=== PATIENT | female | born 1945 | race Caucasian/White ===

== ENCOUNTER 2017-04-22 09:47 | Observation (INO) | payer OTHER ==
[~2017-04-22] VITALS: Ht 152.4 cm; Wt 76.7 kg
[~2017-04-22 09:47] MED LIST: HYDROCODONE-AP1 EA12 PO; PRINZIDE 10-121 EACH PO
[2017-04-22 11:05] LABS: BASOPHIL COUNT 0.1 K/uL (0-0.1); EOSINOPHIL (%) 0.6 % (0-5); EOSINOPHIL COUNT 0.1 K/uL (0-0.3); HEMATOCRIT 35.1 % (36.0-46.0); IMMATURE GRANULOCYTE (%) 0.3 % (0.0-0.7); INSTRUMENT ABS NEUTROPHIL CT 6.6 K/uL; LYMPHOCYTE COUNT 2.1 K/uL (1.0-2.8); MCH 28.9 PG (29.0-34.0); MCHC 33.6 G/DL (30.0-36.0); MCV 85.8 FL (83-99); MEAN PLAT.VOLUME 9.7 uM^3 (9.5-12.4); MONOCYTE (%) 8.3 % (3-12); MONOCYTE COUNT 0.8 K/uL (0-0.8); NEUTROPHIL (%) 68.3 % (45-76); NEUTROPHIL COUNT 6.6 K/uL (1.8-6.4); PLATELET COUNT 320 K/uL (156-360); RBC DIS.WIDTH-CV 13.7 % (11.8-14.6); RBC DIS.WIDTH-SD 43.3 % (39-53); RED BLOOD COUNT 4.09 M/uL (3.80-5.20); WHITE BLOOD COUNT 9.7 K/uL (4.1-10.2)
[2017-04-22 11:14] LABS: CHLORIDE 93 mEq/L (99-109); SODIUM 127 mEq/L (136-147)
[2017-04-22 11:15] LABS: GLUCOSE 100 mg/dL (70-99)
[2017-04-22 11:17] LABS: ANION GAP 10 MEQ/L (2-14)
[2017-04-22 11:19] LABS: GFR ESTIMATE (CALCULATED) > 59 mL/min/
[2017-04-22 11:20] LABS: UREA NITROGEN (BUN) 6 mg/dL (9-23)
[2017-04-22 11:22] LABS: CREATINE KINASE 82 IU/L (1-294); TOTAL CK 82 IU/L (1-294)
[2017-04-22 11:28] LABS: CK-MB 2.1 ng/mL (0.0-4.9)
[2017-04-22] MEDS ORDERED: TRAMADOL HCL50 MG PO (13:30)
[2017-04-22] MEDS ORDERED: SERAX10 MG PO (13:31)
[2017-04-22] MEDS ORDERED: VENLAFAXINE HCL75 M3 PO (13:31)
[2017-04-22] MEDS ORDERED: TOPROL XL50 MG PO (13:31)
[2017-04-22] MEDS ORDERED: VALSARTAN320 MG PO (13:31)
[2017-04-22] MEDS ORDERED: NORVASC10 MG PO (13:32)
[2017-04-22] MEDS ORDERED: ELAVIL10 MG PO (13:32)
[2017-04-22] MEDS ORDERED: VITAMIN D31000 UNI2 PO (13:34)
[2017-04-22] MEDS ORDERED: OMEPRAZOLE40 M1 PO (13:34)
[2017-04-22 14:01] VITALS: BP 150/75
[2017-04-22 18:34] LABS: ANION GAP 10 MEQ/L (2-14); CHLORIDE 97 MEQ/L (99-109); GFR ESTIMATE (CALCULATED) > 59 mL/min/; GLUCOSE 89 mg/dL (70-99); POTASSIUM 3.7 MEQ/L (3.7-5.4); SAMPLE HEMOLYSIS CHECK 0; SAMPLE ICTERIC CHECK 0; SAMPLE LIPEMIA CHECK 0; SODIUM 131 MEQ/L (136-147); UREA NITROGEN (BUN) 5 mg/dL (9-23)
[2017-04-22 20:00] VITALS: BP 150/62
[2017-04-23] VITALS: BP 154/44
[2017-04-23 04:00] VITALS: BP 144/78
[2017-04-23 06:14] LABS: ANION GAP 7 MEQ/L (2-14); CHLORIDE 100 MEQ/L (99-109); GFR ESTIMATE (CALCULATED) > 59 mL/min/; GLUCOSE 93 mg/dL (70-99); POTASSIUM 4.1 MEQ/L (3.7-5.4); SAMPLE HEMOLYSIS CHECK 0; SAMPLE ICTERIC CHECK 0; SAMPLE LIPEMIA CHECK 0; SODIUM 133 MEQ/L (136-147); UREA NITROGEN (BUN) 4 mg/dL (9-23)
[2017-04-23 07:09] VITALS: BP 152/72
== END 2017-04-23 11:14 | disposition home or self-care (01) ==
LOC: EME 09:47 → EDOF 13:16 → 5WEST 13:16
PROVIDERS: Emergency Medicine; Hospitalist
DX: E87.1 Hypo-osmolality and hyponatremia (principal); M79.604 Pain in right leg; J45.909 Unspecified asthma, uncomplicated; I10 Essential (primary) hypertension; K21.9 Gastro-esophageal reflux disease without esophagitis; M79.7 Fibromyalgia; R53.1 Weakness; F17.210 Nicotine dependence, cigarettes, uncomplicated; M17.9 Osteoarthritis of knee, unspecified
CPT/HCPCS: 80048; 80048 91; 82550; 82553; 83935; 84300; 85025; 93971; 99281; 99284; G0378; J1650; J7030

== ENCOUNTER 2017-05-26 14:51 | Inpatient (IN) | payer OTHER ==
[~2017-05-26] VITALS: Ht 160 cm; Wt 84.9 kg
[~2017-05-26 14:51] MED LIST changes: +NORVASC10 MG PO; +OMEPRAZOLE40 M1 PO; +SERAX10 MG PO; +TOPROL XL50 MG PO; +TRAMADOL HCL50 MG PO; +VALSARTAN320 MG PO; +VENLAFAXINE HCL75 M3 PO; +VITAMIN D31000 UNI2 PO
[2017-05-26] MEDS ORDERED: TYLENOL WITH C1 EACH PO (15:20)
[2017-05-26 15:57] LABS: HEMATOCRIT 35.1 % (36.0-46.0); MCH 28.6 PG (29.0-34.0); MCHC 33.6 G/DL (30.0-36.0); MCV 85.2 FL (83-99); MEAN PLAT.VOLUME 10.1 uM^3 (9.5-12.4); PLATELET COUNT 276 K/uL (156-360); RBC DIS.WIDTH-CV 14.3 % (11.8-14.6); RBC DIS.WIDTH-SD 44.6 % (39-53); RED BLOOD COUNT 4.12 M/uL (3.80-5.20); WHITE BLOOD COUNT 10.4 K/uL (4.1-10.2)
[2017-05-26 16:04] LABS: INTER. NORMALIZED RATIO 1.1; PROTHROMBIN TIME 11.8 SEC (10.2-12.9)
[2017-05-26 16:06] LABS: CHLORIDE 99 mEq/L (99-109); POTASSIUM 3.8 mEq/L (3.7-5.4); SODIUM 132 mEq/L (136-147)
[2017-05-26 16:08] LABS: GLUCOSE 120 mg/dL (70-99)
[2017-05-26 16:10] LABS: ANION GAP 10 MEQ/L (2-14)
[2017-05-26 16:12] LABS: GFR ESTIMATE (CALCULATED) > 59 mL/min/
[2017-05-26 16:13] LABS: UREA NITROGEN (BUN) 6 mg/dL (9-23)
[2017-05-26] MEDS ORDERED: ELAVIL10 MG PO (18:59)
[2017-05-26] MEDS ORDERED: METOPROLOL SUCC50 MG PO (20:33)
[2017-05-26 21:18] VITALS: BP 144/67
[2017-05-26 22:59] VITALS: BP 140/65
[2017-05-27 03:58] VITALS: BP 135/84
[2017-05-27 06:50] LABS: MCH 29.8 PG (29.0-34.0); MCHC 34.3 G/DL (30.0-36.0); MCV 86.8 FL (83-99); MEAN PLAT.VOLUME 10.9 uM^3 (9.5-12.4); PLATELET COUNT 282 K/uL (156-360); RBC DIS.WIDTH-CV 14.5 % (11.8-14.6); RBC DIS.WIDTH-SD 46.3 % (39-53); RED BLOOD COUNT 4.03 M/uL (3.80-5.20); WHITE BLOOD COUNT 11.6 K/uL (4.1-10.2)
[2017-05-27 07:12] LABS: ANION GAP 12 MEQ/L (2-14); CHLORIDE 96 MEQ/L (99-109); GFR ESTIMATE (CALCULATED) > 59 mL/min/; GLUCOSE 104 mg/dL (70-99); POTASSIUM 4.3 MEQ/L (3.7-5.4); SAMPLE HEMOLYSIS CHECK 0; SAMPLE ICTERIC CHECK 0; SAMPLE LIPEMIA CHECK 0; SODIUM 133 MEQ/L (136-147); UREA NITROGEN (BUN) 7 mg/dL (9-23)
[2017-05-27 07:48] VITALS: BP 171/74
[2017-05-27 16:30] VITALS: BP 141/87
[2017-05-27 19:30] VITALS: BP 157/72
[2017-05-28 07:29] VITALS: BP 120/69
[2017-05-28 09:06] LABS: HEMATOCRIT 30.3 % (36.0-46.0); MCH 29.1 PG (29.0-34.0); MCHC 33.7 G/DL (30.0-36.0); MCV 86.6 FL (83-99); MEAN PLAT.VOLUME 10.8 uM^3 (9.5-12.4); PLATELET COUNT 223 K/uL (156-360); RBC DIS.WIDTH-CV 14.6 % (11.8-14.6); RBC DIS.WIDTH-SD 46.4 % (39-53); WHITE BLOOD COUNT 14.5 K/uL (4.1-10.2)
[2017-05-28 09:30] LABS: ANION GAP 7 MEQ/L (2-14); CHLORIDE 100 MEQ/L (99-109); GFR ESTIMATE (CALCULATED) > 59 mL/min/; GLUCOSE 110 mg/dL (70-99); POTASSIUM 4.1 MEQ/L (3.7-5.4); SAMPLE HEMOLYSIS CHECK 0; SAMPLE ICTERIC CHECK 0; SAMPLE LIPEMIA CHECK 0; SODIUM 131 MEQ/L (136-147); UREA NITROGEN (BUN) 9 mg/dL (9-23)
[2017-05-28 15:30] VITALS: BP 144/70
[2017-05-29 00:15] VITALS: BP 134/62
[2017-05-29 07:05] LABS: EOSINOPHIL (%) 0.4 % (0-5); EOSINOPHIL COUNT 0.1 K/uL (0-0.3); HEMATOCRIT 29.6 % (36.0-46.0); IMMATURE GRANULOCYTE (%) 0.7 % (0.0-0.7); IMMATURE GRANULOCYTE COUNT 0.1 K/uL; INSTRUMENT ABS NEUTROPHIL CT 10.1 K/uL; LYMPHOCYTE COUNT 1.8 K/uL (1.0-2.8); MCH 29.9 PG (29.0-34.0); MCHC 34.1 G/DL (30.0-36.0); MCV 87.6 FL (83-99); MEAN PLAT.VOLUME 11.4 uM^3 (9.5-12.4); MONOCYTE (%) 10.3 % (3-12); MONOCYTE COUNT 1.4 K/uL (0-0.8); NEUTROPHIL (%) 75.3 % (45-76); NEUTROPHIL COUNT 10.1 K/uL (1.8-6.4); PLATELET COUNT 206 K/uL (156-360); RBC DIS.WIDTH-CV 14.7 % (11.8-14.6); RBC DIS.WIDTH-SD 47.8 % (39-53); RED BLOOD COUNT 3.38 M/uL (3.80-5.20); WHITE BLOOD COUNT 13.4 K/uL (4.1-10.2)
[2017-05-29 07:29] LABS: ANION GAP 10 MEQ/L (2-14); CHLORIDE 98 MEQ/L (99-109); GFR ESTIMATE (CALCULATED) > 59 mL/min/; GLUCOSE 85 mg/dL (70-99); POTASSIUM 3.7 MEQ/L (3.7-5.4); SAMPLE HEMOLYSIS CHECK 0; SAMPLE ICTERIC CHECK 0; SAMPLE LIPEMIA CHECK 0; SODIUM 131 MEQ/L (136-147); UREA NITROGEN (BUN) 8 mg/dL (9-23)
[2017-05-29 08:00] VITALS: BP 114/59
[2017-05-29 11:17] VITALS: BP 129/60
[2017-05-29 15:45] VITALS: BP 116/60
[2017-05-29 19:48] VITALS: BP 147/67
[2017-05-29 23:13] VITALS: BP 136/69
[2017-05-30 03:54] VITALS: BP 142/67
[2017-05-30] MEDS ORDERED: DOCUSATE SODIU100 MG PO (07:50)
[2017-05-30] MEDS ORDERED: ENDOCET 5-3251 EACH PO (07:50)
[2017-05-30] MEDS ORDERED: XARELTO10 MG PO (07:50)
[2017-05-30 08:04] VITALS: BP 138/63
[2017-05-30 09:55] LABS: HEMATOCRIT 27.6 % (36.0-46.0); MCH 28.5 PG (29.0-34.0); MCV 86.5 FL (83-99); MEAN PLAT.VOLUME 10.6 uM^3 (9.5-12.4); PLATELET COUNT 225 K/uL (156-360); RBC DIS.WIDTH-CV 14.6 % (11.8-14.6); RED BLOOD COUNT 3.19 M/uL (3.80-5.20); WHITE BLOOD COUNT 9.8 K/uL (4.1-10.2)
[2017-05-30 10:23] LABS: ANION GAP 11 MEQ/L (2-14); CHLORIDE 100 MEQ/L (99-109); GFR ESTIMATE (CALCULATED) > 59 mL/min/; GLUCOSE 95 mg/dL (70-99); POTASSIUM 3.7 MEQ/L (3.7-5.4); SAMPLE HEMOLYSIS CHECK 0; SAMPLE ICTERIC CHECK 0; SAMPLE LIPEMIA CHECK 0; SODIUM 129 MEQ/L (136-147); UREA NITROGEN (BUN) 7 mg/dL (9-23)
== END 2017-05-30 11:14 | DRG 470 ==
LOC: EME 14:51 → 3EAST 19:08 → EDOF 19:08 → ENRESERV 19:12 → 3EAST 20:36
PROVIDERS: Emergency Medicine; Hospitalist; Physician Assistant
PROC: 0SRR01A Replacement of Right Hip Joint, Femoral Surface with Metal Synthetic Substitute, Uncemented, Open Approach (ICD-10-PCS; principal; 2017-05-27)
DX: S72.031A Displaced midcervical fracture of right femur, initial encounter for closed fracture (principal); W01.0XXA Fall on same level from slipping, tripping and stumbling without subsequent striking against object, initial encounter; E87.1 Hypo-osmolality and hyponatremia; I10 Essential (primary) hypertension; K21.9 Gastro-esophageal reflux disease without esophagitis; M79.7 Fibromyalgia; M17.11 Unilateral primary osteoarthritis, right knee; R29.6 Repeated falls; F41.9 Anxiety disorder, unspecified; F32.9 Major depressive disorder, single episode, unspecified; F17.210 Nicotine dependence, cigarettes, uncomplicated; Y92.007 Garden or yard of unspecified non-institutional (private) residence as the place of occurrence of the external cause; Y93.H2 Activity, gardening and landscaping; Z87.442 Personal history of urinary calculi; Z83.3 Family history of diabetes mellitus; Z88.1 Allergy status to other antibiotic agents; Z88.5 Allergy status to narcotic agent
CPT/HCPCS: 70450; 71010; 72125; 73502; 80048; 80069; 85014; 85018; 85025; 85027; 85610; 86850; 86900; 86901; 94799; 97530 GO; 97530 GP; 99281; 99285; J1170; J1644; J2250; J2270; J2405; J3010; J3370; J7030; S0028

== ENCOUNTER 2018-02-28 20:58 | Emergency (ER) | payer OTHER ==
[~2018-02-28] VITALS: Ht 152.4 cm; Wt 67.8 kg
[~2018-02-28 20:58] MED LIST changes: +DOCUSATE SODIU100 MG PO; +ELAVIL10 MG PO; +ENDOCET 5-3251 EACH PO; +METOPROLOL SUCC50 MG PO; +TYLENOL WITH C1 EACH PO; +XARELTO10 MG PO
[2018-02-28] MEDS ORDERED: ASPIRIN81 M2 PO (21:54)
[2018-02-28] MEDS ORDERED: FISH OIL 1,0001 EAC7 PO (21:54)
[2018-03-01 00:25] VITALS: BP 137/83
== END 2018-03-01 00:25 | disposition home or self-care (01) ==
LOC: EME → EDBD 20:58 → EME 03-01 00:25
DX: M71.22 Synovial cyst of popliteal space [Baker], left knee (principal); I10 Essential (primary) hypertension; K21.9 Gastro-esophageal reflux disease without esophagitis; J45.909 Unspecified asthma, uncomplicated; M79.7 Fibromyalgia; F41.9 Anxiety disorder, unspecified; F32.9 Major depressive disorder, single episode, unspecified; F17.200 Nicotine dependence, unspecified, uncomplicated; Z87.442 Personal history of urinary calculi; Z79.891 Long term (current) use of opiate analgesic; Z88.5 Allergy status to narcotic agent; Z88.1 Allergy status to other antibiotic agents
CPT/HCPCS: 73564; 93971; 99281; 99284

== ENCOUNTER 2018-05-05 22:04 | Inpatient (IN) | payer OTHER ==
[~2018-05-05] VITALS: Ht 152.4 cm; Wt 67.9 kg
[~2018-05-05 22:04] MED LIST changes: +ANTIVERT25 MG PO; +ASPIRIN81 M2 PO; +BENICAR20 MG PO; +FISH OIL 1,0001 EAC7 PO; +IRON325 M1 PO
[2018-05-06 12:11] VITALS: BP 184/74
[2018-05-06 18:16] VITALS: BP 132/65
[2018-05-06 20:02] VITALS: BP 140/64
[2018-05-07] VITALS: BP 133/62
[2018-05-07 04:08] VITALS: BP 131/63
[2018-05-07 06:10] LABS: HEMATOCRIT 31.3 % (36.0-46.0); HEMOGLOBIN 10.5 G/DL (11.9-15.5); MCV 85.3 FL (83-99)
[2018-05-07 06:33] LABS: CHLORIDE 98 MEQ/L (99-109); CREATININE 0.7 MG/DL (0.6-1.3); GFR ESTIMATE (CALCULATED) > 59 mL/min/; GLUCOSE 158 mg/dL (70-99); POTASSIUM 4.1 MEQ/L (3.7-5.4); SODIUM 133 MEQ/L (136-147); UREA NITROGEN (BUN) 7 mg/dL (9-23)
[2018-05-07 08:18] VITALS: BP 151/65
[2018-05-07 15:55] VITALS: BP 175/73
[2018-05-07 19:56] LABS: INTER. NORMALIZED RATIO 1.2
[2018-05-07 20:19] VITALS: BP 145/66
[2018-05-08 00:18] VITALS: BP 175/68
[2018-05-08 03:55] VITALS: BP 171/80
[2018-05-08 06:32] LABS: HEMATOCRIT 32.9 % (36.0-46.0); HEMOGLOBIN 11.3 G/DL (11.9-15.5); MCV 83.3 FL (83-99)
[2018-05-08 08:22] VITALS: BP 151/60
[2018-05-08 13:26] VITALS: BP 170/80
[2018-05-08 15:54] VITALS: BP 186/94
[2018-05-08 20:00] VITALS: BP 139/95
[2018-05-09 04:30] VITALS: BP 159/70
[2018-05-09 08:02] VITALS: BP 138/63
[2018-05-09] MEDS ORDERED: TYLENOL REGULA325 MG PO (09:11)
[2018-05-09] MEDS ORDERED: CELECOXIB200 MG PO (09:12)
[2018-05-09] MEDS ORDERED: ELIQUIS2.5 MG PO (09:12)
[2018-05-09 11:32] VITALS: BP 160/72
== END 2018-05-09 15:15 | DRG 470 ==
LOC: ENRESERV 22:04 → 2SOUTH 05-06 10:12 → 3WEST 05-06 11:30 → 2SOUTH 05-06 11:30 → 3WEST 05-06 17:58 → 2SOUTH 05-06 19:58 → 3WEST 05-09 15:15
PROVIDERS: Orthopaedic Surgery
PROC: 0SRC0J9 Replacement of Right Knee Joint with Synthetic Substitute, Cemented, Open Approach (ICD-10-PCS; principal; 2018-05-06)
DX: M17.11 Unilateral primary osteoarthritis, right knee (principal); R41.0 Disorientation, unspecified; J45.909 Unspecified asthma, uncomplicated; I10 Essential (primary) hypertension; M79.7 Fibromyalgia; M81.0 Age-related osteoporosis without current pathological fracture; M06.9 Rheumatoid arthritis, unspecified; K21.9 Gastro-esophageal reflux disease without esophagitis; K44.9 Diaphragmatic hernia without obstruction or gangrene; F32.9 Major depressive disorder, single episode, unspecified; F17.200 Nicotine dependence, unspecified, uncomplicated; Z90.710 Acquired absence of both cervix and uterus; Z96.641 Presence of right artificial hip joint; Z91.040 Latex allergy status; Z88.5 Allergy status to narcotic agent; Z91.048 Other nonmedicinal substance allergy status; Z79.82 Long term (current) use of aspirin
CPT/HCPCS: 71045; 80048; 85014; 85018; 85610; 94799; C1713; J1100; J1170; J2250; J2405; J2765; J2795; J3010; J7050